=== PATIENT | female | born 1985 | race African-American/Black ===

== ENCOUNTER 2016-08-03 15:19 | Emergency (ER) | payer OTHER ==
[~2016-08-03] VITALS: Ht 149.9 cm; Wt 70.0 kg
[~2016-08-03 15:19] MED LIST: BENA25TA8 PO; FLON0.053
[2016-08-03 15:21] VITALS: BP 129/71; PULSE 102; RESP 15; TEMP 98.5; O2SAT 97
[2016-08-03] MEDS ORDERED: MAGICADU2 SWISH-SWAL (16:39)
[2016-08-03] MEDS ORDERED: AZIT250T3 PO (16:39)
--- NOTE | 2016-08-03 16:43 | PD ---
HPI Chief Complaint: Cold / Flu Symptoms Time Seen by Provider: 16:40 Travel History International Travel<30 days: No Contact w/Intl Traveler<30days: No Traveled to known affect area: No History of Present Illness HPI 30-year-old female that presents to the ED for elevation of cold-like symptoms. Patient has had cold like symptoms since Thursday. Per patient she relates she has strep throat. She's had it before and feels the same. She is only to penicillin. She states that she has severe sore throat that caused her discomfort when she swallows but able to do so. She has swollen tonsils with exudates. She states having not really cough but some congestion and pain on the anterior neck secondary to inflamed lymph nodes. She states having some fevers initially but not so much anymore. She denies any chest pain or shortness of breath. No sick contacts. No allergies to medication. She has not seen anybody for this. PFSH Past Medical History Cancer: No Cardiovascular Problems: No Diabetes: No Hepatitis: No Hiatal Hernia: No Hypertension: No Respiratory: No Immunizations Current: Yes Thyroid Disease: No ?: Not LMP: 08/01/16 : 2 Para: 2 Past Surgical History Pacemaker: No Other Surgery: No Social History Alcohol Use: No Tobacco Use: No Substance Use: No Allergies-Medications (Allergen,Severity, Reaction): Coded Allergies: Penicillin (Verified Allergy, Severe, 07/21/14) Reported Meds & Prescriptions Reported Meds & Active Scripts Active Flonase (Fluticasone Propionate) 0.05 % Naspr 2 Spr NA DAILY 30 Days 2 SPRAYS EACH NOSTRIL Reported Benadryl 25 mg tab (Diphenhydramine HCl) 25 Mg Tab 25 Mg PO DIRECTED Review of Systems Except as stated in HPI: all other systems reviewed are Neg Physical Exam Narrative GENERAL: Well-nourished, well-developed patient in no apparent distress. SKIN: Warm and dry. HEAD: Atraumatic. Normocephalic. EYES: Pupils equal and round reactive to light and accommodation. No scleral icterus. No injection or drainage. ENT: No nasal bleeding or discharge. Mucous membranes pink and moist. TMs are clear with no sign of infection or perforation. No mastoid tenderness. Ear canals are intact bilaterally. Anterior cervical lymphadenopathy. Nostril mucosa is red and moist with clear mucus noted. No sinus tenderness to palpation noted. Tonsils are enlarged and swollen with exudates more noted on the right than the left. No ulvua Deviation. Tongue is midline. NECK: Trachea midline. No JVD. No meningeal signs noted CARDIOVASCULAR: Regular rate and rhythm. RESPIRATORY: No accessory muscle use. Clear to auscultation. Breath sounds equal bilaterally. Data Data Last Documented VS Vital Signs Date Time Temp Pulse Resp B/P Pulse Ox O2 Delivery O2 Flow Rate FiO2 08/03/16 15:21 98.5 102 15 129/71 97 Orders Group A Rapid Strep Screen (08/03/16 16:39) MDM Medical Decision Making Medical Screen Exam Complete: Yes Emergency Medical Condition: Yes Medical Record Reviewed: Yes Differential Diagnosis Acute pharyngitis versus sinusitis versus tonsillitis versus strep throat Narrative Course 30-year-old female that presents to the ED for evaluation of sore throat. Patient was properly examined and was found to have signs and symptoms consistent appears to be likely strep throat. Strep swab was done but I will treat patient prophylactically with azithromycin. Given some Magic mouthwash. Told to follow up with PCP. See ED worsening symptoms. She agrees and understands treatment plan. Told to take OTC meds as needed. Diagnosis Primary Impression: Pharyngitis, acute Qualified Code: J02.9 - Acute pharyngitis, unspecified etiology Patient Instructions: General Instructions Additional Instructions: Motrin and Tylenol for pain and fever. You can use [id number] antihistamine as well as well as Mucinex as needed for runny nose and congestion. Cough drops for cough as needed. Drink plenty of fluids. Follow-up with PCP. See ED for worsening symptoms. Med/Other Pt SpecificInfo: Prescription(s) given Scripts Uqfdwxmd-Iorsmkscygwwbrd-Yzjgkrqvy Liq (Magic Mouthwash Adult Liq)120 Ml Susp5 Ml SWISH-SWAL ACHS #120 ML Ref 0 Each 5 mL contains: Nystatin 200,000 units, Diphenhydramine 4.25 mg, Viscous Lidocaine 10 mg, Rolle syrup 0.8 mL Prov:Marisela Patel MD 08/03/16 Azithromycin 250 Mg Pbb321 Mg PO DIRECTED #6 TAB Take 2 tabs (500 mg) on day 1 then 1 tab daily x 4 days. Prov:Marisela Patel MD 08/03/16 Disposition: 01 DISCHARGE HOME Condition: Stable Lio Morse Aug 03, 2016 16:43
[2016-08-03] MEDS ORDERED: AZITHROMYCIN 250 MG TAB PO ONE (17:30)
[2016-08-03 17:44] VITALS: BP 132/75
== END 2016-08-03 17:45 | disposition home or self-care (01) ==
LOC: NEPE 15:19
DX: J02.9 Acute pharyngitis, unspecified (principal)
CPT/HCPCS: 87081; 87880; 99283

== ENCOUNTER 2016-11-25 08:52 | Emergency (ER) | payer OTHER ==
[~2016-11-25] VITALS: Ht 149.9 cm; Wt 68.0 kg
[~2016-11-25 08:52] MED LIST changes: +AZIT250T3 PO; +MAGICADU2 SWISH-SWAL
[2016-11-25 08:54] VITALS: BP 117/67; PULSE 78; RESP 16; TEMP 98.2; O2SAT 99
--- NOTE | 2016-11-25 09:00 | PD ---
HPI . left eye discharge and drainage x 1 day/scratchy throat Chief Complaint: Eye Problems/Injury Time Seen by Provider: 08:59 Travel History International Travel<30 days: No Contact w/Intl Traveler<30days: No Traveled to known affect area: No History of Present Illness HPI 31-year-old female with no past medical history here with complaints of left eye discharge and drainage for 1 day. Patient says she initially thought something got in her eye, but then noticed a lot of purulent drainage. She says this morning it was crusted over. She denies any visual loss or foreign body sensation. She also admits to a scratchy throat. She admits to seasonal allergies. She denies any fever or chills. PFSH Past Medical History Cancer: No Cardiovascular Problems: No Diabetes: No Hepatitis: No Hiatal Hernia: No Hypertension: No Respiratory: No Immunizations Current: Yes Thyroid Disease: No ?: Not LMP: 11/18/16 : 2 Para: 2 Past Surgical History Pacemaker: No Other Surgery: No Social History Alcohol Use: No Tobacco Use: No Substance Use: No Allergies-Medications (Allergen,Severity, Reaction): Coded Allergies: Penicillin (Verified Allergy, Severe, 11/25/16) Reported Meds & Prescriptions Reported Meds & Active Scripts Active Erythromycin Opth Oint 5 Mg/Gm Oint 1 Applic LEFT EYE BID 5 Days Review of Systems General / Constitutional: No: Fever Eyes: Positive: Drainage, Redness, No: Visual changes HENT: No: Headaches Cardiovascular: No: Chest Pain or Discomfort Respiratory: No: Shortness of Breath Gastrointestinal: No: Abdominal Pain Genitourinary: No: Dysuria Musculoskeletal: No: Pain Skin: No Rash Neurologic: No: Weakness Psychiatric: No: Depression Endocrine: No: Polydipsia Hematologic/Lymphatic: No: Easy Bruising Physical Exam Narrative GENERAL: AAO x 3, no acute distress, Well-nourished, well-developed patient. SKIN: Warm and dry. No visible rashes or bruising. HEAD: Normocephalic and atraumatic. EYES: No scleral icterus. EOM intact, PERRLA, left eye + injection and purulent drainage (mild) seen, mild erythema, ENT: No nasal drainage noted. Mucous membranes pink. Airway patent. no oropharynx abnormality NECK: Supple, trachea midline. No JVD. No lymphadenopathy CARDIOVASCULAR: Regular rate and rhythm without murmurs, gallops, or rubs. RESPIRATORY: Breath sounds equal bilaterally. No accessory muscle use. No rhonchi or rales. GASTROINTESTINAL: Visual inspection normal EXTREMITIES: No cyanosis or edema. BACK: Nontender without obvious deformity. No CVA tenderness. PSYCH: AAO x 3, normal affect. Data Data Last Documented VS Vital Signs Date Time Temp Pulse Resp B/P Pulse Ox O2 Delivery O2 Flow Rate FiO2 11/25/16 08:54 98.2 78 16 117/67 99 MDM Medical Decision Making Medical Screen Exam Complete: Yes Emergency Medical Condition: Yes Medical Record Reviewed: Yes Differential Diagnosis Conjunctivitis, sinusitis, allergic rhinitis Narrative Course 31-year-old female with no past medical history here with complaints of left eye discharge and drainage for 1 day. Patient says she initially thought something got in her eye, but then noticed a lot of purulent drainage. She says this morning it was crusted over. She denies any visual loss or foreign body sensation. She also admits to a scratchy throat. She admits to seasonal allergies. She denies any fever or chills. Patient seen and examined she appears to have a bacterial conjunctivitis of the left eye. I will go ahead and provide her with some erythromycin eye ointment. I've discussed administration with her. She also seems to have some seasonal allergies, she can use [id number] Claritin. I've discussed this with her. Patient verbalized understanding of instructions, questions were answered, and thanked me for their care. I advised them if their condition worsens, please return to the nearest emergency room for further care. Diagnosis Primary Impression: Conjunctivitis Qualified Code: H10.32 - Acute conjunctivitis of left eye, unspecified acute conjunctivitis type Additional Impression: Allergic rhinitis Qualified Code: J30.9 - Allergic rhinitis, unspecified allergic rhinitis trigger, unspecified rhinitis seasonality Patient Instructions: General Instructions Additional Instructions: Please return to emergency department if your symptoms return or worsen. Follow up with your primary care provider. Take medications as prescribed. Med/Other Pt SpecificInfo: Prescription(s) given Scripts Erythromycin Opth Oint 5 Mg/Gm Oint1 Applic LEFT EYE BID 5 Days Ref 0 Prov:Kathy Greene DO 11/25/16 Disposition: 01 DISCHARGE HOME Condition: Stable Hayley Schwartz November 25, 2016 08:59 Med/Other Pt SpecificInfo: Prescription(s) given Scripts Erythromycin Opth Oint 5 Mg/Gm Oint1 Applic LEFT EYE BID 5 Days Ref 0 Prov:Kathy Greene DO 11/25/16 Disposition: 01 DISCHARGE HOME Condition: Stable Hayley Schwartz November 25, 2016 08:59
[2016-11-25] MEDS ORDERED: ERYTOIN10 LEFT EYE (09:05)
== END 2016-11-25 09:11 | disposition home or self-care (01) ==
LOC: NEPK 08:52
DX: H10.402 Unspecified chronic conjunctivitis, left eye (principal); J30.9 Allergic rhinitis, unspecified; B99.9 Unspecified infectious disease
CPT/HCPCS: 99282